=== PATIENT | female | born 1935 | race Caucasian/White ===

== ENCOUNTER 2017-07-21 09:03 | Outpatient (CLI) | payer MEDICARE, BC | END 2017-07-21 09:04 | disposition home or self-care (01) | LOC: BICMAMMO 09:03 | PROVIDERS: ATTEND Internal Medicine | DX: Z12.31 Encounter for screening mammogram for malignant neoplasm of breast (principal) | CPT/HCPCS: 77063; 77067 ==

== ENCOUNTER 2019-04-03 12:32 | Outpatient (CLI) | payer MEDICARE ==
--- NOTE | 2019-04-03 14:56 | ULT ---
VENOUS DOPPLER ULTRASOUND OF THE RIGHT LOWER EXTREMITY: HISTORY: Right medial thigh pain. TECHNIQUE: Triplett scale, color flow, and spectral Doppler imaging of the deep venous system of the right lower ext remity was performed. FINDINGS: There is good flow, compression, and augmentation noted in the right common femoral, femoral, deep fe moral, popliteal, posterior tibial, and greater saphenous veins. IMPRESSION: No evidence of deep vein thrombosis in the right lower extremity. POS: OFF
== END 2019-04-03 12:33 | disposition home or self-care (01) ==
LOC: ULT 12:32
PROVIDERS: ATTEND Internal Medicine
DX: I82.401 Acute embolism and thrombosis of unspecified deep veins of right lower extremity (principal); R60.9 Edema, unspecified

== ENCOUNTER 2021-02-14 13:13 | Outpatient (CLI) | payer MEDICARE, BC | END 2021-02-14 13:14 | disposition home or self-care (01) | LOC: BICMAMMO 13:13 | PROVIDERS: ATTEND Internal Medicine | DX: Z12.31 Encounter for screening mammogram for malignant neoplasm of breast (principal); Z91.89 Other specified personal risk factors, not elsewhere classified | CPT/HCPCS: 77063; 77067 ==

== ENCOUNTER 2021-08-27 16:04 | Outpatient (CLI) | payer MEDICARE, BC | END 2021-08-27 16:05 | disposition home or self-care (01) | LOC: BICRAD 16:04 | PROVIDERS: ATTEND Physician Assistant Medical | DX: K44.9 Diaphragmatic hernia without obstruction or gangrene (principal); R05.9 Cough, unspecified | CPT/HCPCS: 71046 ==

== ENCOUNTER 2021-10-09 13:51 | Outpatient (CLI) | payer MEDICARE, BC ==
[2021-10-10 00:13] LABS: SARS-CoV-2 PCR by NAA Not Detected (NotDetected)
== END 2021-10-09 13:52 | disposition home or self-care (01) ==
LOC: LABBT 13:51
PROVIDERS: ATTEND Surgery
DX: Z20.822 Contact with and (suspected) exposure to COVID-19 (principal)
CPT/HCPCS: U0003; U0005

== ENCOUNTER 2024-07-24 09:01 | Inpatient (IN) | payer MEDICARE, BC ==
[2024-07-24] MEDS ORDERED: Iopamidol 370 76% 100 ML VIAL ONE (09:12)
[2024-07-24 09:51] LABS: Actual Bicarbonate (HCO3v) 30.7 mEq/L (22-28); Analyzer IN Cardio ER; Base Excess 6.1 mEq/L (-2.0 to +3.0); Chloride (VBG) 93 mmol/L (98-106); Potassium (VBG) 3.37 mmol/L (3.70-5.30); Sodium 132 mmol/L (133-146); pH (venous) 7.464 (7.32-7.43)
[2024-07-24 10:15] LABS: #Basophils 0.03 10x3/uL (0.0-0.2); %Basophils 0.4 % (0.0-1.0); %Eosinophils 0.4 % (0.0-10.0); %Lymphocytes 11.3 % (21.0-51.0); %Monocytes 9.9 % (0.0-10.0); %Neutrophils 77.9 % (42.0-75.0); Hematocrit 35.4 % (36.0-47.0); Hemoglobin 11.5 g/dL (12.0-16.0); Mean Corpuscular HGB CONC 32.5 g/dL (32.0-36.0); Mean Corpuscular Volume 83.1 fL (78.0-98.0); Mean Platelet Volume 9.6 fL (7.4-10.4); Platelet Count 245 10x3/uL (130-400); RBC Distribution Width 13.6 % (11.5-14.5); Red Blood Cell (RBC) Count 4.26 mill/uL (4.20-5.40)
[2024-07-24 10:26] LABS: INR-International Normal Ratio 1.8; PTT 45.2 sec (22.9-36.1); Prothrombin Time 20.5 sec (12.0-14.7)
[2024-07-24 10:27] LABS: Troponin I Less than 0.010 ng/mL (< 0.028)
[2024-07-24 10:39] LABS: Acetaminophen Less than 10 mcg/mL (Less than 10); Alcohol Less than 10.0 mg/dL (Less than 10); Salicylate Less than 8.0 mg/dL (Less than 8.0)
[2024-07-24 10:40] LABS: ALT (SGPT) 9 U/L (Less than 34); AST (SGOT) 19 U/L (11-34); Albumin 3.4 g/dL (3.1-4.5); Alkaline Phosphatase 93 U/L (40-110); Anion Gap 10 mmol/L (10-20); BUN (Urea Nitrogen) 13 mg/dL (9.8-20.1); Bilirubin, Total 1.3 mg/dL (0.3-1.2); Calc. Creatinine Clearance 0 mL/min (70-130); Calcium 9.5 mg/dL (7.8-10.44); Carbon Dioxide 29 mmol/L (23-31); Chloride 96 mmol/L (98-107); Estimated GFR 70; Glucose 146 mg/dL (83-110); Potassium 3.3 mmol/L (3.5-5.1); Protein, Total 6.4 g/dL (5.8-8.1); Sodium 132 mmol/L (136-145)
[2024-07-24 11:13] LABS: Bacteria/HPF None Seen HPF (None Seen); Bilirubin Negative (Negative); Blood, Urine 1+ (Negative); CAUTI Indications for Culture Alt mental st,lethar; Clarity Clear (Clear); Glucose, Urine (Dipstick) Normal (Negative); Ketone, Urine Negative (Negative); Leukocyte Negative Leu/uL (Negative); Nitrite Negative (Negative); Protein, Urine (Dipstick) Negative (Neg-Trace); Specific Gravity, Urine 1.016 (1.002-1.036); Squamous Epithelial None Seen HPF (0-3); Urobilinogen Normal mg/dL (Less than 2); WBC/HPF 0-3 HPF (0-3); pH, Urine 7.5 (5.0-9.0)
[2024-07-24 11:15] LABS: Urine Culture Reflex No No
[2024-07-24 11:18] LABS: Amphetamine Not Detected (NotDetected); Barbiturates Screen Not Detected (NotDetected); Benzodiazepine Screen Not Detected (NotDetected); Cocaine Metabolite Screen Not Detected (NotDetected); Methadone Not Detected (NotDetected); Methamphetamine Not Detected (NotDetected); Opiate Screen Not Detected (NotDetected); Oxycodone Screen Not Detected (NotDetected); Phencyclidine (PCP) Not Detected (NotDetected); THC/Cannabinoid Screen Not Detected (NotDetected); Tricyclic Screen Not Detected (NotDetected)
[2024-07-24] MEDS ORDERED: Acetaminophen 500 MG TAB ONE (13:21)
[2024-07-24] MEDS ORDERED: Ondansetron ODT 4 MG TAB PO PRN (14:28)
[2024-07-24] MEDS ORDERED: Acetaminophen 325 MG TAB PO PRN (14:28)
[2024-07-24 17:10] LABS: Influenza A by NAA Not Detected (NotDetected); Influenza B by NAA Not Detected (NotDetected); SARS-CoV-2 NAA Rapid Test Not Detected (NotDetected)
[2024-07-24 18:31] VITALS: BMI 28.0
[2024-07-24] MEDS: Potassium Chloride 20 MEQ TAB PO SCH (20:45)
[2024-07-24] MEDS: Apixaban 5 MG TAB PO SCH (20:46)
[2024-07-24] MEDS: Carvedilol 6.25 MG TAB PO SCH (20:46)
[2024-07-24] MEDS: Pantoprazole 40 MG DR.TAB PO SCH (20:46)
[2024-07-24] MEDS: Lactated Ringer's 1,000 ML IV SCH (20:58)
[2024-07-25 04:25] LABS: ALT (SGPT) 8 U/L (Less than 34); AST (SGOT) 18 U/L (11-34); Albumin 2.9 g/dL (3.1-4.5); Alkaline Phosphatase 86 U/L (40-110); Anion Gap 10 mmol/L (10-20); BUN (Urea Nitrogen) 9 mg/dL (9.8-20.1); Calc. Creatinine Clearance 72 mL/min (70-130); Calcium 8.7 mg/dL (7.8-10.44); Carbon Dioxide 28 mmol/L (23-31); Chloride 100 mmol/L (98-107); Estimated GFR 84; Globulin 2.6 g/dL (2.4-3.5); Glucose 127 mg/dL (83-110); Potassium 3.3 mmol/L (3.5-5.1); Protein, Total 5.5 g/dL (5.8-8.1); Sodium 135 mmol/L (136-145)
[2024-07-25] MEDS: Potassium Chloride 20 MEQ TAB PO SCH ×2 (06:53→17:07)
[2024-07-25] MEDS: Levothyroxine Sodium 50 MCG TAB PO SCH (06:54)
[2024-07-25 07:00] LABS: #Basophils 0.03 10x3/uL (0.0-0.2); #Eosinophils Less than 0.03 10x3/uL (0.0-0.7); %Basophils 0.4 % (0.0-1.0); %Eosinophils 0.3 % (0.0-10.0); %Lymphocytes 14.4 % (21.0-51.0); %Monocytes 11.3 % (0.0-10.0); %Neutrophils 73.3 % (42.0-75.0); Hematocrit 31.9 % (36.0-47.0); Hemoglobin 10.4 g/dL (12.0-16.0); Mean Corpuscular HGB CONC 32.6 g/dL (32.0-36.0); Mean Corpuscular Hemoglobin 26.9 pg (27.0-31.0); Mean Corpuscular Volume 82.6 fL (78.0-98.0); Mean Platelet Volume 9.4 fL (7.4-10.4); Platelet Count 188 10x3/uL (130-400); RBC Distribution Width 13.8 % (11.5-14.5); Red Blood Cell (RBC) Count 3.86 mill/uL (4.20-5.40)
[2024-07-25 07:14] LABS: Magnesium 1.5 mg/dL (1.6-2.6)
[2024-07-25] MEDS: Carvedilol 6.25 MG TAB PO SCH (08:40)
[2024-07-25] MEDS: Atorvastatin Calcium 20 MG TAB PO SCH (08:41)
[2024-07-25] MEDS: Aspirin 81 mg Enteric Coated Tablet PO SCH (11:50)
[2024-07-25] MEDS: Magnesium Oxide 400 MG TAB PO SCH (21:12)
[2024-07-26 05:02] LABS: #Basophils Less than 0.03 10x3/uL (0.0-0.2); %Basophils 0.4 % (0.0-1.0); %Eosinophils 1.3 % (0.0-10.0); %Lymphocytes 19.2 % (21.0-51.0); %Monocytes 14.2 % (0.0-10.0); %Neutrophils 64.7 % (42.0-75.0); Hematocrit 31.8 % (36.0-47.0); Hemoglobin 10.2 g/dL (12.0-16.0); Mean Corpuscular HGB CONC 32.1 g/dL (32.0-36.0); Mean Corpuscular Hemoglobin 27.1 pg (27.0-31.0); Mean Corpuscular Volume 84.4 fL (78.0-98.0); Platelet Count 180 10x3/uL (130-400); RBC Distribution Width 13.7 % (11.5-14.5); Red Blood Cell (RBC) Count 3.77 mill/uL (4.20-5.40)
[2024-07-26] MEDS: Lidocaine 4% Patch TD SCH (05:36)
[2024-07-26 05:39] LABS: Anion Gap 11 mmol/L (10-20); BUN (Urea Nitrogen) 9 mg/dL (9.8-20.1); Calc. Creatinine Clearance 66 mL/min (70-130); Carbon Dioxide 25 mmol/L (23-31); Chloride 104 mmol/L (98-107); Estimated GFR 80; Glucose 124 mg/dL (83-110); Magnesium 1.6 mg/dL (1.6-2.6); Potassium 4.3 mmol/L (3.5-5.1); Sodium 136 mmol/L (136-145)
[2024-07-26] MEDS: Aspirin 81 mg Enteric Coated Tablet PO SCH (08:52)
[2024-07-26] MEDS: Transdermal Patch Removal TOP SCH (11:25)
[2024-07-26] MEDS: Magnesium Oxide 400 MG TAB PO SCH (11:26)
[2024-07-26 18:32] VITALS: BP 119/61; TEMP 98.5
== END 2024-07-26 19:21 | disposition home health service (06) | DRG 69 ==
LOC: ERS 09:01 → ERHOLD 13:54 → 2SE 17:08
PROVIDERS: ADMIT Family Medicine; ATTEND Family Medicine
DX: G45.9 Transient cerebral ischemic attack, unspecified (principal); G93.41 Metabolic encephalopathy; E87.1 Hypo-osmolality and hyponatremia; E87.3 Alkalosis; D64.9 Anemia, unspecified; E87.6 Hypokalemia; I48.91 Unspecified atrial fibrillation; I10 Essential (primary) hypertension; E78.5 Hyperlipidemia, unspecified; E03.9 Hypothyroidism, unspecified; Z79.899 Other long term (current) drug therapy; Z79.01 Long term (current) use of anticoagulants; M25.511 Pain in right shoulder; E83.42 Hypomagnesemia
CPT/HCPCS: 36415; 51701; 70496; 70498; 70551; 71045; 80048; 80053; 80306; 80307; 81001; 82140; 82805; 83605; 83735; 84145; 84443; 84484; 85025; 85610; 85730; 86141; 87040; 87086; 93005; 96360; J7120; Q9967